=== PATIENT | female | born 1970 | race African-American/Black ===

== ENCOUNTER 2017-09-18 17:22 | Emergency (ER) | payer OTHER ==
[~2017-09-18] VITALS: Ht 172.7 cm; Wt 83.4 kg
[2017-09-18 17:27] VITALS: BP 137/66; PULSE 100; RESP 18; TEMP 100.7; O2SAT 97
[2017-09-18] MEDS ORDERED: AMBI6.25 PO (17:39)
[2017-09-18] MEDS ORDERED: HYDR25TA5 PO (17:39)
[2017-09-18 17:45] VITALS: BP 142/70; PULSE 84; RESP 18; TEMP 100.7; O2SAT 98
--- NOTE | 2017-09-18 18:18 | RADRPT ---
EXAM DATE/TIME: 09/18/2017 17:52 [place] COMPARISON: No previous studies available for comparison. INDICATIONS : Cough and congestion. MEDICAL HISTORY : None. SURGICAL HISTORY : None. ENCOUNTER: Initial ACUITY: 3 days PAIN SCORE: 0/10 LOCATION: Bilateral chest FINDINGS: PA and lateral views of the chest demonstrate the lungs to be symmetrically aerated without evidence of mass, infiltrate or effusion. The cardiomediastinal contours are unremarkable. Osseous structure s are intact. CONCLUSION: 1. No active disease. Mildly tortuous aorta. Jordin Vargas MD on September 18, 2017 at 18:15 Board Certified Radiologist. This report was verified electronically.
--- NOTE | 2017-09-18 18:28 | PD ---
HPI Chief Complaint: Cold / Flu Symptoms Time Seen by Provider: 17:40 Travel History International Travel<30 days: No Contact w/Intl Traveler<30days: No Traveled to known affect area: No History of Present Illness HPI PATIENT IS VISITING DAUGHTERS FOR HOLIDAYS AND IS ORIGINALLY FROM [facility]. PATIENT C/O COUGH, PROD OF YELLOW SPUTUM, BODY ACHES GENERALIZED, STATES ABOUT 7/10 IN SEVERITY FROM OTHER "COLDS" THAT SHE'S EVER HAD. NO AGGRAVATING/ALLEVIATING FACTORS. ALL: TERFENADINE PMHX:DENIES PFSH Past Medical History Diminished Hearing: No Hypertension: Yes Immunizations Current: Yes Tetanus Vaccination: < 5 Years Influenza Vaccination: No ?: Not Past Surgical History Abdominal Surgery: Yes (abdominoplasty) Hysterectomy: Yes Other Surgery: Yes Social History Alcohol Use: Yes (social) Tobacco Use: No Substance Use: No Allergies-Medications (Allergen,Severity, Reaction): Coded Allergies: terfenadine (Verified Allergy, Severe, Anaphylaxis, 09/18/17) Reported Meds & Prescriptions Reported Meds & Active Scripts Active Reported Ambien CR (Zolpidem Tartrate) 6.25 Mg Tab 6.25 Mg PO HS PRN Hydrochlorothiazide 25 Mg Tab 25 Mg PO DAILY Review of Systems Except as stated in HPI: all other systems reviewed are Neg General / Constitutional: No: Fever Eyes: No: Visual changes HENT: Positive: Rhinitis Cardiovascular: No: Chest Pain or Discomfort Respiratory: Positive: Cough Gastrointestinal: No: Abdominal Pain Genitourinary: No: Dysuria Musculoskeletal: No: Pain Skin: No Rash Neurologic: No: Weakness Psychiatric: No: Depression Endocrine: No: Polydipsia Hematologic/Lymphatic: No: Easy Bruising Physical Exam Narrative GENERAL: SKIN: Warm and dry. HEAD: Atraumatic. Normocephalic. EYES: Pupils equal and round. No scleral icterus. No injection or drainage. ENT: No nasal bleeding or discharge. Mucous membranes pink and moist. NECK: Trachea midline. No JVD. CARDIOVASCULAR: Regular rate and rhythm. RESPIRATORY: No accessory muscle use. RONCHI BILATERALLY. Breath sounds equal bilaterally. GASTROINTESTINAL: Abdomen soft, non-tender, nondistended. MUSCULOSKELETAL: Extremities without clubbing, cyanosis, or edema. No obvious deformities. NEUROLOGICAL: Awake and alert. No obvious cranial nerve deficits. Motor grossly within normal limits. Five out of 5 muscle strength in the arms and legs. Normal speech. PSYCHIATRIC: Appropriate mood and affect; insight and judgment normal. Data Data Last Documented VS Vital Signs Date Time Temp Pulse Resp B/P (MAP) Pulse Ox O2 Delivery O2 Flow Rate FiO2 09/18/17 17:45 100.7 84 18 142/70 (94) 98 Room Air Orders Orders Influenzae A/B Antigen (09/18/17 17:41) Chest, Pa & Lat (09/18/17 17:41) MDM Medical Decision Making Medical Screen Exam Complete: Yes Emergency Medical Condition: Yes Medical Record Reviewed: Yes Differential Diagnosis PNA V BRONCHITITS V FLU Narrative Course NEG FLU TEST...CHEST XRAY DOES NOT SHOW ANY PNA/PTX AT THIS TIME....WILL TREAT WITH ALBUTEROL INHALER, MEDROL RAJIV AND WAIT AND SEE ABX ZPAK SHOULD SYMPTOMS WORSEN OR SHOULD SHE DEVELOP A FEVER TO START IT Diagnosis Primary Impression: Acute bronchitis Qualified Codes: J20.9 - Acute bronchitis, unspecified Patient Instructions: Acute Bronchitis (DC), General Instructions Scripts Guaifenesin-Codeine Liq (Guaifenesin AC Liq) 100-10 Mg/5 Ml Syrp 10 ML PO Q4H Y for COUGH, #1 BOTTLE 0 Refills Prov: Anjel Velasco MD 09/18/17 Azithromycin (Zithromax Z-Rajiv) 250 Mg Dspk 250 MG PO DIRECTED for Infection, #1 DSPK 0 Refills 500 MG (2 tabs) day 1, then 1 tab days 2-5. Prov: Anjel Velasco MD 09/18/17 Disposition: 01 DISCHARGE HOME Condition: Stable Anjel Velasco MD Sep 18, 2017 18:28
[2017-09-18] MEDS ORDERED: ZITHTAB PO (18:30)
[2017-09-18] MEDS ORDERED: GUAISYP4 PO (18:30)
[2017-09-18] MEDS ORDERED: VENTAER INH (18:43)
[2017-09-18] MEDS ORDERED: AZITHROMYCIN 250 MG TAB PO ONE (18:45)
[2017-09-18] MEDS ORDERED: traMADol HCL 50 MG TAB PO ONE (18:45)
[2017-09-18] MEDS ORDERED: BENZONATATE 100 MG CAP PO ONE (18:45)
[2017-09-18 18:50] VITALS: BP 119/66; PULSE 86; RESP 16; O2SAT 99
[2017-09-18 19:15] VITALS: BP 140/75
== END 2017-09-18 19:24 | disposition home or self-care (01) ==
LOC: PHED 17:22
DX: J20.9 Acute bronchitis, unspecified (principal); I10 Essential (primary) hypertension
CPT/HCPCS: 71020; 87804; 99284